=== PATIENT | male | born 1975 | race Caucasian/White ===

== ENCOUNTER 2019-08-20 11:26 | Emergency (ER) | payer MEDICAID ==
[~2019-08-20] VITALS: Ht 160 cm; Wt 83.5 kg
[2019-08-20 11:30] VITALS: Ht 160 cm; Wt 83.5 kg
[2019-08-20 13:06] VITALS: BP 114/62
== END 2019-08-20 13:06 | disposition home or self-care (01) ==
LOC: ED 11:26
DX: U07.1 COVID-19 (principal); J02.9 Acute pharyngitis, unspecified; L29.9 Pruritus, unspecified
CPT/HCPCS: U0003-CS